=== PATIENT | female | born 1980 | race African-American/Black ===

== ENCOUNTER 2016-08-19 16:51 | Emergency (ER) | payer BC, OTHER ==
[~2016-08-19] VITALS: Ht 172.7 cm; Wt 106.5 kg
[~2016-08-19 16:51] MED LIST: ALBUAER3 INH; AMLO10 PO; METO25TA6 PO; PRED50 PO; VALS160T6 PO; ZITHTAB PO
[2016-08-19 16:53] VITALS: BP 232/132; PULSE 84; RESP 15; TEMP 98.1; O2SAT 98
[2016-08-19] MEDS ORDERED: VALS320T6 PO (17:03)
[2016-08-19] MEDS ORDERED: NIFEdipine 10 MG CAP PO ONE (17:45)
[2016-08-19] MEDS ORDERED: cloNIDine HCL 0.2 MG TAB PO ONE (17:45)
--- NOTE | 2016-08-19 17:46 | PD ---
HPI Chief Complaint: Oral / Dental Pain or Problem Time Seen by Provider: 17:41 Travel History International Travel<30 days: No Contact w/Intl Traveler<30days: No Traveled to known affect area: No History of Present Illness HPI The patient was seen and examined in the presence of the nurse. This patient complains of left lower jaw dental pain. She has a obvious rotted out tooth there but the dentist will not do anything until her blood pressures improved. Current pressure 232/130. She has chronic difficult to control blood pressure. She is on multiple antihypertensives and reports compliance. Denies headache or other neurologic complaint. Symptoms severity is moderate. No alleviating factors. Duration one month PFSH Past Medical History Bipolar Disorder: Yes Hypertension: Yes Tetanus Vaccination: < 5 Years ?: Not LMP: 07/2016 : 5 Para: 2 Miscarriage: 3 : 1 Ovarian Cysts: No Dilation and Curettage (D&C): No Tubal Ligation: No Past Surgical History Section: Yes Other Surgery: Yes (SUBMANDIBULAR GLAND REMOVED ) Social History Alcohol Use: Yes (1 LIQUOR DRINK DAILY) Tobacco Use: Yes (5 CIGARETTES A DAY) Substance Use: No Allergies-Medications (Allergen,Severity, Reaction): Coded Allergies: Bactrim (Verified Allergy, Severe, RASH, 08/19/16) Pyridium (Verified Allergy, Severe, 08/19/16) Reported Meds & Prescriptions Reported Meds & Active Scripts Active Norvasc (Amlodipine Besylate) 10 Mg Tab 10 Mg PO DAILY Tramadol (Tramadol HCl) 50 Mg Tab 50 Mg PO Q6H PRN Penicillin V Potassium 500 Mg Tab 500 Mg PO Q8H Reported Valsartan-Hydrochlorothiazide 320-25 Mg Tab 1 Tab PO DAILY Metoprolol Succinate ER 24 HR (Metoprolol Succinate) 25 Mg Tab 50 Mg PO DAILY Review of Systems General / Constitutional: No: Fever Eyes: No: Visual changes HENT: Positive: Dental Difficulties, No: Headaches Cardiovascular: No: Chest Pain or Discomfort Respiratory: No: Shortness of Breath Gastrointestinal: No: Abdominal Pain Genitourinary: No: Dysuria Musculoskeletal: No: Pain Skin: No Rash Neurologic: No: Weakness Psychiatric: No: Depression Endocrine: No: Polydipsia Hematologic/Lymphatic: No: Easy Bruising Physical Exam Narrative GENERAL: Well-nourished, well-developed patient in no apparent distress. SKIN: Focused skin assessment reveals no rash and nodules. Skin is Warm and dry. HEAD: Atraumatic. Normocephalic. EYES: Pupils equal and round. No scleral icterus. No injection or drainage. ENT: No nasal bleeding or discharge. Mucous membranes pink and moist. Oral cavity examination reveals several rotted out molars. No gingival abscess. NECK: Trachea midline. No JVD. CARDIOVASCULAR: Regular rate and rhythm. No murmur appreciated. RESPIRATORY: No accessory muscle use. Clear to auscultation. Breath sounds equal bilaterally. GASTROINTESTINAL: Abdomen soft, non-tender, nondistended. Hepatic and splenic margins not palpable. MUSCULOSKELETAL: No obvious deformities. No clubbing. No cyanosis. No edema. NEUROLOGICAL: Awake and alert. No obvious cranial nerve deficits. Motor grossly within normal limits. Normal speech. PSYCHIATRIC: Appropriate mood and affect; insight and judgment normal. Data Data Last Documented VS Vital Signs Date Time Temp Pulse Resp B/P Pulse Ox O2 Delivery O2 Flow Rate FiO2 08/19/16 18:40 85 174/108 08/19/16 16:53 98.1 15 98 Orders Clonidine (Catapres) (08/19/16 17:45) Nifedipine (Procardia) (08/19/16 17:45) MDM Medical Decision Making Medical Screen Exam Complete: Yes Emergency Medical Condition: Yes Medical Record Reviewed: Yes Differential Diagnosis Hypertensive urgency, accelerated hypertension, dental cavity Narrative Course I have reviewed the patient's electronic medical record. Patient was in March 2016 for laryngitis. She was here for hypertension in 2013. Patient is neurologically intact. I gave her dose of clonidine and Procardia Will reassess her blood pressure after the medicine has a chance to work. Blood pressure recheck is 170/108 Still elevated but much improved She is advised to check and recorded daily and follow up with her physician as soon as she is able She says she is going there Monday I wrote her 10 pills of Norvasc just to assist her with keeping it out of extremely accelerated range. Will need follow-up with dentist as well as primary care Diagnosis Primary Impression: Accelerated hypertension Additional Impression: Dental cavities Additional Instructions: The patient was advised to follow up with their physician and return if they worsen. Check and record blood pressure daily Med/Other Pt SpecificInfo: Prescription(s) given Scripts Amlodipine (Norvasc)10 Mg Tab10 Mg PO DAILY #10 TAB Ref 0 Prov:Hank Shepard MD 08/19/16 Tramadol 50 Mg Tab50 Mg PO Q6H PRN (PAIN) #20 TAB Ref 0 Prov:Hank Shepard MD 08/19/16 Penicillin V Potassium 500 Mg Ttt146 Mg PO Q8H #20 TAB Ref 0 Prov:Hank Shepard MD 08/19/16 Disposition: 01 DISCHARGE HOME Condition: Stable Hank Shepard MD Aug 19, 2016 17:46
[2016-08-19] MEDS ORDERED: PENI500T PO (18:27)
[2016-08-19 18:40] VITALS: BP 174/108; PULSE 85
[2016-08-19] MEDS ORDERED: AMLO10 PO (19:49)
[2016-08-19] MEDS ORDERED: TRAM50TA PO (19:49)
== END 2016-08-19 20:15 | disposition home or self-care (01) ==
LOC: NEPD 16:51
DX: I10 Essential (primary) hypertension (principal); K02.9 Dental caries, unspecified; F17.210 Nicotine dependence, cigarettes, uncomplicated
CPT/HCPCS: 99282